=== PATIENT | female | born 2005 | race Two or more races ===

== ENCOUNTER 2024-05-04 13:05 | Outpatient (CLI) | payer OTHER | END 2024-05-04 13:07 | disposition home or self-care (01) | LOC: PRENATAL 13:05 | PROVIDERS: ATTEND Obstetrics & Gynecology Maternal & Fetal Medicine | DX: O36.80X0 Pregnancy with inconclusive fetal viability, not applicable or unspecified (principal); Z36.82 Encounter for antenatal screening for nuchal translucency; Z14.8 Genetic carrier of other disease; Z3A.13 13 weeks gestation of pregnancy ==

== ENCOUNTER 2024-05-15 21:17 | Emergency (ER) | payer OTHER ==
[~2024-05-15] VITALS: Ht 152.4 cm; Wt 82.1 kg
[2024-05-15] MEDS ORDERED: PRENATA CHEWAB1 EACH (21:31)
[2024-05-16] MEDS ORDERED: MEPERIDINE HCL/PF 25 MG/ML VIAL IM STA (01:09)
[2024-05-16 01:52] LABS: HEMATOCRIT 35.7 % (36.0-45.00); HEMOGLOBIN 12.3 g/dL (12.0-15.00); MEAN CELL VOLUME 83.9 fL (80.00-100.00); MEAN CORPUSCULAR HEMOGLOBIN 28.8 pg (27.00-32.0); MEAN CORPUSCULAR HGB CONC 34.3 g/dl (32.0-36.0); PLATELET COUNT 251 K/uL (150-450); RED BLOOD COUNT 4.26 M/uL (4.00-6.00); RED CELL DISTRIBUTION WIDTH 13.9 % (11.5-14.5)
[2024-05-16 02:05] LABS: URINE APPEARANCE Cloudy; URINE BILIRRUBIN Negative (NEGATIVE); URINE BLOOD Negative; URINE COLOR Yellow; URINE GLUCOSE Negative (NEGATIVE); URINE KETONE Negative (NEGATIVE); URINE LEUKOCYTE Large; URINE NITRATE Negative; URINE PROTEIN Negative (NEGATIVE); URINE UROBILINOGEN 0.2 E.U./dl
[2024-05-16 02:09] LABS: URINE BACTERIA 4637.6 uL (0.0-1933); URINE EPITHELIAL CELLS 70.7 uL (0.0-38.8); URINE RBC 8.1 uL (0.0-20.8); URINE WBC 190.6 uL (0.0-23.2)
[2024-05-16 02:11] LABS: CALCIUM 9.6 mg/dL (8.5-10.1); CREATININE SERUM 0.65 mg/dL (0.55-1.02); GFR 116.2; POTASSIUM 4.55 mEq/L (3.5-5.1)
[2024-05-16 02:23] LABS: URINE CAST 0.14 uL (0.0-1.40)
[2024-05-16] MEDS ORDERED: CEFTRIAXONE SODIUM 1,000 MG VIAL IV STA (06:09)
[2024-05-16] MEDS ORDERED: CEPHALEXIN500 MG PO (06:33)
[2024-05-16] MEDS ORDERED: CEFTRIAXONE SODIUM 1,000 MG VIAL ONE (06:38)
== END 2024-05-16 06:48 ==
LOC: ER 21:19
PROVIDERS: General Practice
DX: O26.899 Other specified pregnancy related conditions, unspecified trimester (principal); Z91.013 Allergy to seafood; Z91.030 Bee allergy status; Z3A.15 15 weeks gestation of pregnancy

== ENCOUNTER 2024-06-08 14:43 | Outpatient (CLI) | payer OTHER ==
[~2024-06-08 14:43] MED LIST: CEPHALEXIN500 MG PO; PRENATA CHEWAB1 EACH
== END 2024-06-08 14:49 | disposition home or self-care (01) ==
LOC: PRENATAL 14:43
PROVIDERS: ATTEND Obstetrics & Gynecology Maternal & Fetal Medicine
DX: O44.00 Complete placenta previa NOS or without hemorrhage, unspecified trimester (principal); Z3A.19 19 weeks gestation of pregnancy

== ENCOUNTER 2024-06-11 10:29 | Emergency (ER) | payer OTHER ==
[~2024-06-11] VITALS: Ht 152.4 cm; Wt 83.5 kg
[2024-06-11 12:24] LABS: HEMATOCRIT 33.1 % (36.0-45.00); HEMOGLOBIN 11.2 g/dL (12.0-15.00); MEAN CELL VOLUME 83.9 fL (80.00-100.00); MEAN CORPUSCULAR HEMOGLOBIN 28.4 pg (27.00-32.0); MEAN CORPUSCULAR HGB CONC 33.8 g/dl (32.0-36.0); PLATELET COUNT 252 K/uL (150-450); RED BLOOD COUNT 3.94 M/uL (4.00-6.00); RED CELL DISTRIBUTION WIDTH 13.8 % (11.5-14.5)
[2024-06-11] MEDS ORDERED: CEFTRIAXONE SODIUM 1,000 MG VIAL IM STA (14:04)
[2024-06-11] MEDS ORDERED: DUI500 PO (14:09)
[2024-06-11] MEDS ORDERED: GENTAMICIN SULFA5 ML OP (14:10)
== END 2024-06-11 14:19 | disposition home or self-care (01) ==
LOC: ER 10:32
PROVIDERS: Emergency Medicine
DX: O99.512 Diseases of the respiratory system complicating pregnancy, second trimester (principal); Z3A.19 19 weeks gestation of pregnancy; Z91.030 Bee allergy status; Z91.013 Allergy to seafood; H66.93 Otitis media, unspecified, bilateral; H10.89 Other conjunctivitis; Z20.822 Contact with and (suspected) exposure to COVID-19

== ENCOUNTER 2024-09-06 13:11 | Outpatient (CLI) | payer OTHER ==
[~2024-09-06 13:11] MED LIST changes: +DUI500 PO; +GENTAMICIN SULFA5 ML OP
== END 2024-09-06 13:12 | disposition home or self-care (01) ==
LOC: PRENATAL 13:11
PROVIDERS: ATTEND Obstetrics & Gynecology Maternal & Fetal Medicine
DX: O26.849 Uterine size-date discrepancy, unspecified trimester (principal); O36.8199 Decreased fetal movements, unspecified trimester, other fetus; Z3A.32 32 weeks gestation of pregnancy

== ENCOUNTER 2024-10-26 13:30 | Inpatient (IN) | payer OTHER ==
[~2024-10-26] VITALS: Ht 152.4 cm; Wt 94.3 kg
[2024-10-26 14:21] LABS: BASO % 0.3 % (0.1-1.2); EOS # 0.11 (0.04-0.54); EOS % 1.0 % (0.7-7.0); LYMPH # 1.92 (1.18-3.74); LYMPH % 17.4 % (19.3-53.1); MEAN PLATELET VOLUME 11.50 fl (9.4-12.4); MONO # 0.60 (0.24-0.82); MONO % 5.4 % (4.7-12.5); NEUT # 8.33 (1.56-6.13); NEUT % 75.6 % (34.0-71.1); RED CELL DISTRIBUTION WIDTH 14.4 % (11.6-14.4)
[2024-10-26 14:22] LABS: URINE APPEARANCE Clear; URINE BILIRRUBIN Negative (NEGATIVE); URINE BLOOD Negative; URINE COLOR Yellow; URINE GLUCOSE Negative (NEGATIVE); URINE KETONE Negative (NEGATIVE); URINE LEUKOCYTE Moderate; URINE NITRATE Negative; URINE PROTEIN Negative (NEGATIVE); URINE UROBILINOGEN 0.2 E.U./dl
[2024-10-26 14:25] LABS: URINE BACTERIA 2277.5 uL (0.0-1933); URINE EPITHELIAL CELLS 46.9 uL (0.0-38.8); URINE RBC 2.9 uL (0.0-20.8); URINE WBC 132.7 uL (0.0-23.2)
[2024-10-26 14:42] LABS: BUN CREA RATIO 16.0 (7.0-25.0); CREATININE SERUM 0.69 mg/dL (0.55-1.02); GFR 107.4; GLUCOSE FASTING 91.0 mg/dL (65-100); OSMOLALITY SERUM 278.0 MOSM/KG (275-295)
[2024-10-26 14:44] LABS: INR 0.94
[2024-10-26 14:54] LABS: TYPE CELLS SQUAMOUS; URINE CAST 0.00 uL (0.0-1.40)
[2024-10-30 10:22] VITALS: BP 106/66
[2024-10-30 10:29] VITALS: BP 106/66
[2024-10-30] MEDS ORDERED: RINGERS SOLUTION,LACTATED 1,000 ML IV SCH (12:15)
[2024-10-30 15:16] VITALS: BP 131/73
[2024-10-30 19:26] VITALS: BP 123/63
[2024-10-30] MEDS ORDERED: MISOPROSTOL 25 MCG/4 ML GEL.W.APPL ONE (19:38)
[2024-10-30] MEDS ORDERED: MISOPROSTOL 25 MCG/4 ML GEL.W.APPL VAG ONE (20:00)
[2024-10-30 23:14] VITALS: BP 130/79
[2024-10-31] VITALS (8 sets, daily range): BP systolic 100–156; BP diastolic 63–94
[2024-10-31] MEDS ORDERED: OXYTOCIN 500 ML IV SCH (05:45)
[2024-10-31] MEDS ORDERED: ONDANSETRON HCL 2 MG/ML VIAL ONE (06:00)
[2024-10-31] MEDS ORDERED: ONDANSETRON HCL 2 MG/ML VIAL IV ONE (06:30)
[2024-10-31] MEDS ORDERED: ERYTHROMYCIN BASE OPHT 1GM EACH TUBE OP ONE (13:39)
[2024-10-31] MEDS ORDERED: LIDOCAINE HCL 1% 10ML VIAL ONE (13:39)
[2024-10-31] MEDS ORDERED: CHLORHEXIDINE GLUCONATE 120 ML BOTTLE TOP ONE ×2 (13:39→17:15)
[2024-10-31] MEDS ORDERED: OXYTOCIN 20 UNITS/1000ML RL PIGGYBAG IV ONE (13:39)
[2024-10-31] MEDS ORDERED: OXYTOCIN 1,000 ML IV SCH (17:15)
[2024-11-01 01:44] VITALS: BP 124/80
[2024-11-01 03:56] LABS: BASO % 0.2 % (0.1-1.2); EOS # 0.01 (0.04-0.54); EOS % 0.1 % (0.7-7.0); LYMPH # 2.16 (1.18-3.74); LYMPH % 12.8 % (19.3-53.1); MEAN PLATELET VOLUME 12.10 fl (9.4-12.4); MONO # 0.87 (0.24-0.82); MONO % 5.2 % (4.7-12.5); NEUT # 13.70 (1.56-6.13); NEUT % 81.1 % (34.0-71.1); RED CELL DISTRIBUTION WIDTH 14.6 % (11.6-14.4)
[2024-11-01 08:19] VITALS: BP 108/60
[2024-11-01 13:20] VITALS: BP 116/72
[2024-11-01 17:35] VITALS: BP 118/78
[2024-11-02] VITALS: BP 124/68
[2024-11-02 08:28] VITALS: BP 129/82
== END 2024-11-02 16:18 | disposition home or self-care (01) | DRG 807 ==
LOC: LDR 10-30 11:57 → OB/GYN 10-31 16:26 → LDR 11-01 13:30 → OB/GYN 11-02 16:18
PROVIDERS: Obstetrics & Gynecology; ADMIT Student in an Organized Health Care Education/Training Program; ATTEND Student in an Organized Health Care Education/Training Program
PROC: 3E0P7VZ Introduction of Hormone into Female Reproductive, Via Natural or Artificial Opening (ICD-10-PCS; 2024-10-30)
PROC: 4A1HXCZ Monitoring of Products of Conception, Cardiac Rate, External Approach (ICD-10-PCS; 2024-10-30)
PROC: 10E0XZZ Delivery of Products of Conception, External Approach (ICD-10-PCS; principal; 2024-10-31)
PROC: 0UQG7ZZ Repair Vagina, Via Natural or Artificial Opening (ICD-10-PCS; 2024-10-31)
PROC: 3E033VJ Introduction of Other Hormone into Peripheral Vein, Percutaneous Approach (ICD-10-PCS; 2024-10-31)
DX: O71.4 Obstetric high vaginal laceration alone (principal); Z37.0 Single live birth; Z3A.39 39 weeks gestation of pregnancy; O69.81X0 Labor and delivery complicated by cord around neck, without compression, not applicable or unspecified